=== PATIENT | female | born 1960 | race Caucasian/White ===

== ENCOUNTER → 2019-01-01 | Outpatient (CLI) | payer BC ==
[~2019-01-01] MED LIST: CETI10TA17 PO; CINNAMON PO; E400C PO; FURO20TA4 PO; GABA100T PO; IRBE1TAB15 PO; LORAZAPAM PO; NF-ESOM40C PO; OMEG1CAP51 PO; OXYC-281 PO; PGLT30T PO; TMSL.4C PO; VITA1CAP59 PO; VRP180TCR PO
[2019-01-01 10:03] LABS: SODIUM 141 MMOL/L (135-145)
[2019-01-01 10:04] LABS: ALANINE AMINOTRANSFERASE 15 U/L (0-55); ALKALINE PHOSPHATASE 53 U/L (40-136); BILIRUBIN,TOTAL 0.4 MG/DL (0.1-1.0); BUN/CREATININE RATIO 33; CALCIUM 9.5 MG/DL (8.5-10.1); CARBON DIOXIDE 19 MMOL/L (21-32); CHLORIDE 101 MMOL/L (98-107); CREATININE SERUM 0.83 MG/DL (0.60-1.30); GFR ESTIMATED > 60; GLUCOSE 123 MG/DL (70-105)
== END ==
LOC: LAB FS 07:25
PROVIDERS: ATTEND Family Medicine
DX: I10 Essential (primary) hypertension (principal); E11.9 Type 2 diabetes mellitus without complications
CPT/HCPCS: 36415; 80053; 83036

== ENCOUNTER → 2019-01-28 | Outpatient (CLI) | payer BC ==
[2019-01-28 13:38] LABS: BILIRUBIN,URINE NEGATIVE (NEGATIVE); CLARITY,URINE CLEAR; COLOR,URINE YELLOW; GLUCOSE, URINE (UA) NEGATIVE (NEGATIVE); KETONES,URINE NEGATIVE (NEGATIVE); LEUKOCYTE ESTERASE ,URINE NEGATIVE (NEGATIVE); NITRITE,URINE NEGATIVE (NEGATIVE); PROTEIN,URINE NEGATIVE (NEGATIVE); UROBILINOGEN,URINE 0.2 MG/DL (NORMAL)
== END ==
LOC: LAB FS 13:17
PROVIDERS: ATTEND Family Medicine
DX: R10.9 Unspecified abdominal pain (principal)
CPT/HCPCS: 81002

== ENCOUNTER → 2019-04-01 | Outpatient (CLI) | payer BC ==
--- NOTE | 2019-04-01 09:47 | Diagnostic Imaging Report ---
PROCEDURE: US right lower extremity venous. TECHNIQUE: Multiple real-time grayscale images were obtained over the right lower extremity in various projections. Additional spectral analysis and color Doppler duplex images were also obtained. INDICATION: Right lower leg pain. There is no evidence of right lower extremity DVT. Right lower extremity deep venous system shows normal compressibility with normal response to augmentation and Valsalva. No fluid collection or mass is detected. IMPRESSION: No evidence of right lower extremity DVT. Dictated by: Dictated on workstation # [id number]
== END ==
LOC: RAD 09:07
PROVIDERS: ATTEND Podiatrist
DX: M79.661 Pain in right lower leg (principal)

== ENCOUNTER → 2019-04-06 | Outpatient (CLI) | payer BC ==
[2019-04-06 11:46] LABS: CLARITY,URINE SL CLOUDY; COLOR,URINE DARK YELLOW
[2019-04-06 11:47] LABS: GLUCOSE, URINE (UA) NEGATIVE (NEGATIVE); PROTEIN,URINE NEGATIVE (NEGATIVE)
[2019-04-06 11:48] LABS: BACTERIA,URINE LARGE /HPF; BILIRUBIN,URINE NEGATIVE (NEGATIVE); KETONES,URINE NEGATIVE (NEGATIVE); LEUKOCYTE ESTERASE ,URINE 1+ (NEGATIVE); NITRITE,URINE POSITIVE (NEGATIVE); SQUAMOUS EPITHELIAL CELL,UR 0-2 /HPF; UROBILINOGEN,URINE 0.2 MG/DL (NORMAL); WBC,URINE >100 /HPF
== END ==
LOC: LAB FS 07:56
PROVIDERS: ATTEND Family Medicine
DX: R30.0 Dysuria (principal)
CPT/HCPCS: 81000; 87077; 87088; 87186

== ENCOUNTER → 2019-05-06 | Outpatient (CLI) | payer BC ==
[2019-05-06 09:08] LABS: ALANINE AMINOTRANSFERASE 14 U/L (0-55); ALKALINE PHOSPHATASE 75 U/L (40-136); BILIRUBIN,TOTAL 0.6 MG/DL (0.1-1.0); BUN/CREATININE RATIO 36; CALCIUM 9.7 MG/DL (8.5-10.1); CARBON DIOXIDE 26 MMOL/L (21-32); CHLORIDE 100 MMOL/L (98-107); CREATININE SERUM 0.81 MG/DL (0.60-1.30); GFR ESTIMATED > 60; GLUCOSE 115 MG/DL (70-105); POTASSIUM 4.1 MMOL/L (3.6-5.0); SODIUM 141 MMOL/L (135-145); TOTAL PROTEIN 7.3 GM/DL (6.4-8.2)
[2019-05-06 09:09] LABS: ALBUMIN 4.1 GM/DL (3.2-4.5)
[2019-05-06 15:13] LABS: CHOLESTEROL 246 MG/DL (< 200); HDL CHOLESTEROL 45 MG/DL (40-60); TRIGLYCERIDES 153 MG/DL (<150); VLDL CHOLESTEROL 31 MG/DL (5-40)
== END ==
LOC: LAB FS 08:11
PROVIDERS: ATTEND Family Medicine
DX: E78.5 Hyperlipidemia, unspecified (principal); E11.9 Type 2 diabetes mellitus without complications; I10 Essential (primary) hypertension
CPT/HCPCS: 36415; 80053; 80061; 82043; 83036

== ENCOUNTER → 2019-07-30 | Outpatient (CLI) | payer BC ==
[2019-07-30 11:37] LABS: BILIRUBIN,URINE NEGATIVE (NEGATIVE); CLARITY,URINE CLOUDY; COLOR,URINE YELLOW; GLUCOSE, URINE (UA) NEGATIVE (NEGATIVE); KETONES,URINE NEGATIVE (NEGATIVE); LEUKOCYTE ESTERASE ,URINE 3+ (NEGATIVE); NITRITE,URINE POSITIVE (NEGATIVE); PH,URINE 6.5 (5-9); PROTEIN,URINE NEGATIVE (NEGATIVE); UROBILINOGEN,URINE 0.2 MG/DL (NORMAL)
[2019-07-30 11:38] LABS: BACTERIA,URINE LARGE /HPF; RBC,URINE 0-2 /HPF; SQUAMOUS EPITHELIAL CELL,UR RARE /HPF; WBC,URINE TNTC /HPF
== END ==
LOC: LAB FS 11:02
PROVIDERS: ATTEND Family Medicine
DX: R30.0 Dysuria (principal)
CPT/HCPCS: 81000; 87077; 87088; 87186

== ENCOUNTER → 2019-11-09 | Outpatient (CLI) | payer BC ==
[2019-11-09 15:11] LABS: BILIRUBIN,URINE NEGATIVE (NEGATIVE); CLARITY,URINE CLEAR; COLOR,URINE YELLOW; GLUCOSE, URINE (UA) NEGATIVE (NEGATIVE); KETONES,URINE NEGATIVE (NEGATIVE); LEUKOCYTE ESTERASE ,URINE TRACE (NEGATIVE); NITRITE,URINE NEGATIVE (NEGATIVE); PH,URINE 6.5 (5-9); PROTEIN,URINE NEGATIVE (NEGATIVE)
[2019-11-09 15:12] LABS: BACTERIA,URINE FEW /HPF
== END ==
LOC: LAB FS 13:49
PROVIDERS: ATTEND Family Medicine
DX: R30.0 Dysuria (principal)
CPT/HCPCS: 81000; 87077; 87088; 87186

== ENCOUNTER → 2019-11-29 | Outpatient (CLI) | payer BC ==
[2019-11-29 15:33] LABS: BILIRUBIN,URINE NEGATIVE (NEGATIVE); CLARITY,URINE CLEAR; COLOR,URINE YELLOW; GLUCOSE, URINE (UA) NEGATIVE (NEGATIVE); KETONES,URINE NEGATIVE (NEGATIVE); LEUKOCYTE ESTERASE ,URINE 2+ (NEGATIVE); NITRITE,URINE POSITIVE (NEGATIVE); PH,URINE 6.5 (5-9); PROTEIN,URINE NEGATIVE (NEGATIVE)
[2019-11-29 15:34] LABS: BACTERIA,URINE LARGE /HPF; SQUAMOUS EPITHELIAL CELL,UR RARE /HPF; WBC,URINE 25-50 /HPF
== END ==
LOC: LAB FS 14:15
PROVIDERS: ATTEND Family Medicine
DX: N39.0 Urinary tract infection, site not specified (principal)
CPT/HCPCS: 81000; 87088

== ENCOUNTER → 2019-12-15 | Outpatient (CLI) | payer BC ==
[2019-12-15 14:52] LABS: BACTERIA,URINE MODERATE /HPF; BILIRUBIN,URINE NEGATIVE (NEGATIVE); CLARITY,URINE CLOUDY; COLOR,URINE YELLOW; GLUCOSE, URINE (UA) NEGATIVE (NEGATIVE); KETONES,URINE NEGATIVE (NEGATIVE); LEUKOCYTE ESTERASE ,URINE 2+ (NEGATIVE); NITRITE,URINE NEGATIVE (NEGATIVE); PROTEIN,URINE NEGATIVE (NEGATIVE); RBC,URINE 0-2 /HPF; WBC,URINE TNTC /HPF
== END ==
LOC: LAB FS 14:14
PROVIDERS: ATTEND Family Medicine
DX: R82.90 Unspecified abnormal findings in urine (principal)
CPT/HCPCS: 81000; 87077; 87088

== ENCOUNTER → 2020-07-15 | Outpatient (CLI) | payer BC ==
[2020-07-15 08:22] LABS: ALANINE AMINOTRANSFERASE 18 U/L (0-55); ALKALINE PHOSPHATASE 59 U/L (40-136); BILIRUBIN,TOTAL 0.5 MG/DL (0.1-1.0); BUN/CREATININE RATIO 30; CALCIUM 9.9 MG/DL (8.5-10.1); CARBON DIOXIDE 26 MMOL/L (21-32); CHLORIDE 105 MMOL/L (98-107); CREATININE SERUM 0.82 MG/DL (0.60-1.30); GFR ESTIMATED > 60; GLUCOSE 117 MG/DL (70-105); POTASSIUM 4.2 MMOL/L (3.6-5.0); SODIUM 143 MMOL/L (135-145)
[2020-07-15 08:23] LABS: ALBUMIN 3.9 GM/DL (3.2-4.5)
[2020-07-15 14:15] LABS: TRIGLYCERIDES 108 MG/DL (<150); VLDL CHOLESTEROL 22 MG/DL (5-40)
[2020-07-15 14:20] LABS: CHOLESTEROL 165 MG/DL (< 200)
[2020-07-15 14:21] LABS: HDL CHOLESTEROL 44 MG/DL (40-60)
== END ==
LOC: LAB FS 07:35
PROVIDERS: ATTEND Family Medicine
DX: E78.5 Hyperlipidemia, unspecified (principal); E11.9 Type 2 diabetes mellitus without complications
CPT/HCPCS: 36415; 80053; 80061; 83036

== ENCOUNTER → 2021-02-20 | Outpatient (CLI) | payer BC ==
--- NOTE | 2021-02-20 12:29 | Diagnostic Imaging Report ---
INDICATION: Routine screening. Comparison is made with prior mammogram 08/28/2018 and 05/13/2017. 2-D and 3-D bilateral screening mammography was performed with CAD. Both breasts are heterogeneously dense, limiting the sensitivity of mammography. The parenchymal pattern is stable. No mass or malignant appearing microcalcifications are seen. Axillae are unremarkable. IMPRESSION: BI-RADS Category 1 No mammographic features suspicious for malignancy are identified. ACR BI-RADS Category 1: Negative. Result letter will be mailed to the patient. Note: At least 10% of breast cancer is not imaged by mammography. Dictated by: Dictated on workstation # [id number]
== END ==
LOC: RAD 11:00
PROVIDERS: ATTEND Family Medicine
DX: Z12.31 Encounter for screening mammogram for malignant neoplasm of breast (principal)
CPT/HCPCS: 77063; 77067

== ENCOUNTER 2021-05-26 07:50 | Inpatient (IN) | payer BC ==
[~2021-05-26] VITALS: Ht 165 cm; Wt 117.2 kg
[2021-05-26 08:31] LABS: HEMATOCRIT 35 % (35-52); HEMOGLOBIN 11.4 G/DL (11.5-16.0); MEAN CORPUSCULAR HEMOGLOBIN 30 PG (25-34); MEAN CORPUSCULAR HGB CONC 33 G/DL (32-36); MEAN CORPUSCULAR VOLUME 93 FL (80-99); PLATELET COUNT 256 10^3/uL (130-400); WHITE BLOOD COUNT 11.6 10^3/uL (4.3-11.0)
[2021-05-26 08:32] LABS: BASOPHILS % (AUTO) 0 % (0-10); EOSINOPHILS # (AUTO) 0.1 10^3/uL (0.0-0.3); EOSINOPHILS % (AUTO) 1 % (0-10); LYMPHOCYTES # (AUTO) 0.9 X 10^3 (1.0-4.0); LYMPHOCYTES % (AUTO) 8 % (12-44); MEAN PLATELET VOLUME 9.7 FL (7.4-10.4); MONOCYTES # (AUTO) 0.6 X 10^3 (0.0-1.0); MONOCYTES % (AUTO) 5 % (0-12); NEUTROPHILS # (AUTO) 9.7 X 10^3 (1.8-7.8); NEUTROPHILS % (AUTO) 83 % (42-75)
[2021-05-26 08:34] LABS: INR 1.1 (0.8-1.4); PARTIAL THROMBOPLASTIN TIME 34 SEC (24-35); PROTHROMBIN TIME PATIENT 14.4 SEC (12.2-14.7)
--- NOTE | 2021-05-26 08:34 | ED Respiratory ---
General Chief Complaint: Respiratory Problems Stated Complaint: SOA/COVID + Source: patient Exam Limitations: no limitations History of Present Illness Date Seen by Provider: May 26, 2021 Time Seen by Provider: 08:01 Initial Comments Here with report of shortness of air. Patient has Covid symptoms with significant exposure and is likely Covid positive but was never tested. She is a patient of Dr. Mayes. Patient's is Covid positive. She started expe riencing symptoms on 05/08 with loss of taste and smell on 05/12. Actually was doing better this week but did have intermittent bouts of shortness of air. This morning, her went out to do chores and came back to find her with altered mental status and complaining of shortness of breath. EMS was summoned. Initial O2 sat for EMS was 80 to 81% on room air. They did place her on 6 L nasal cannula and that brought O2 saturations up to 96 percent. She is stating that she is feeling better now. She reports that she felt like there was tightness or swelling in her lower throat when she was short of breath. Does arrive with some wheezes. Patient is obese with history of hypertension and wse-juamwpl-dmrxqsrhr diabetes mellitus. She has not had vaccination for COVID- 19 and did not receive monoclonal antibody therapy. Timing/Duration: changing over time Severity: moderate, severe Prior Episodes/Possible Cause: no prior episodes Modifying Factors: Improves With Oxygen Associated Symptoms: No chest pain/soreness, No cough, No fever/chills; nasal congestion, shortness of breath, sore throat, wheezing Allergies and Home Medications Allergies Coded Allergies: Sulfa (Sulfonamide Antibiotics) (Unverified Allergy, Unknown, 02/20/21) indomethacin (Unverified Allergy, Unknown, 02/20/21) iodine (Unverified Allergy, Unknown, 02/20/21) terconazole (Unverified Allergy, Unknown, 02/20/21) nitrofurantoin (Unverified Adverse Reaction, Unknown, 05/26/21) Home Medications Atorvastatin Calcium 10 Mg Tablet, 10 MG PO HS, (Reported) Last Action: Last Taken Edited Cetirizine Hcl 10 Mg Tablet, 10 MG PO HS, (Reported) Last Action: Last Taken Edited Esomeprazole Mag Trihydrate 40 Mg Capsule., 1 CAP PO DAILY, (Reported) Last Action: Last Taken Edited Furosemide 20 Mg Tablet, 1 EACH PO DAILY PRN, (Reported) Last Action: Last Taken Edited Gabapentin 100 Mg Tablet, 1 EACH PO HS, (Reported) Last Action: Last Taken Edited Glimepiride 1 Mg Tablet, 1 MG PO DAILY, (Reported) Last Action: Last Taken Edited Oxycodone Hcl/Acetaminophen 1 Each Tablet, 1 EACH PO Q6H PRN, (Reported) 1 EVERY 6HRS NEEDED FOR PAIN Last Action: Last Taken Edited Pioglitazone Hcl 30 Mg Tab, 30 MG PO DAILY, (Reported) Last Action: Last Taken Edited Telmisartan/Hydrochlorothiazid 1 Each Tablet, 1 TAB PO DAILY, (Reported) Last Action: Last Taken Edited Verapamil Hcl 180 Mg Tab, 1 EACH PO HS, (Reported) Last Action: Last Taken Edited Vitamin B Complex 1 Cap Capsule, 1 CAP PO DAILY, (Reported) Last Action: Last Taken Edited Patient Home Medication List Home Medication List Reviewed: Yes Review of Systems Review of Systems Constitutional: see HPI; No malaise EENTM: see HPI Respiratory: see HPI, short of breath, wheezing Cardiovascular: edema (Right leg that is chronic); No palpitations Gastrointestinal: No abdominal pain; diarrhea, vomiting Genitourinary: no symptoms reported Musculoskeletal: no symptoms reported Skin: no symptoms reported All Other Systems Reviewed Negative Unless Noted: Yes Past Glejnto-Hrrspj-Xfepco Hx Patient Social History Substance use?: No Alcohol Use?: No Past Medical History Surgeries: Yes Section, Gallbladder, Orthopedic Respiratory: No Cardiac: Yes Hypertension Neurological: No Reproductive Disorders: No Genitourinary: Yes Gastrointestinal: Yes Gastroesophageal Reflux Musculoskeletal: No Endocrine: Yes Diabetes, Non-Insulin dep Family Medical History Reviewed and Corrections made No Pertinent Family Hx Physical Exam Vital Signs - First Documented 05/26/21 08:02 Temp 36.6 Pulse 111 Resp 24 B/P (MAP) 153/81 (105) Pulse Ox 96 O2 Delivery High Flow N/C O2 Flow Rate 4.00 Capillary Refill : Height: '" Weight: lbs. oz. kg; BMI Method: General Appearance: WD/WN, no apparent distress HEENT: PERRL/EOMI, pharynx normal Neck: full range of motion, supple Respiratory: decreased breath sounds, crackles (Bilateral bases left greater than right), wheezing (Scattered) Cardiovascular: no murmur, tachycardia Gastrointestinal: non tender, soft Extremities: non-tender, normal inspection Neurologic/Psychiatric: alert, oriented x 3 Skin: normal color, warm/dry Focused Exam Lactate Level 05/26/21 08:08: Lactic Acid Level 2.02*H 05/26/21 10:43: Lactic Acid Level 2.08*H Lactic Acid Level Laboratory Tests Test 05/26/21 08:08 05/26/21 10:43 Lactic Acid Level 2.02 MMOL/L (0.50-2.00) *H 2.08 MMOL/L (0.50-2.00) *H Progress/Results/Core Measures Suspected Sepsis SIRS Temperature: Pulse: Respiratory Rate: Laboratory Tests 05/26/21 08:08: White Blood Count 11.6H Blood Pressure / Mean: 05/26/21 08:08: Lactic Acid Level 2.02*H 05/26/21 10:43: Lactic Acid Level 2.08*H Laboratory Tests 05/26/21 08:08: Creatinine 1.02, INR Comment 1.1, Platelet Count 256, Total Bilirubin 0.4 Results/Orders Lab Results Laboratory Tests Test 05/26/21 08:08 05/26/21 08:19 05/26/21 10:43 05/26/21 11:10 Range/Units White Blood Count 11.6 H 4.3-11.0 10^3/uL Red Blood Count 3.75 L 4.35-5.85 10^6/uL Hemoglobin 11.4 L 11.5-16.0 G/DL Hematocrit 35 35-52 % Mean Corpuscular Volume 93 80-99 FL Mean Corpuscular Hemoglobin 30 25-34 PG Mean Corpuscular Hemoglobin Concent 33 32-36 G/DL Red Cell Distribution Width 13.2 10.0-14.5 % Platelet Count 256 130-400 10^3/uL Mean Platelet Volume 9.7 7.4-10.4 FL Immature Granulocyte % (Auto) 2 % Neutrophils (%) (Auto) 83 H 42-75 % Lymphocytes (%) (Auto) 8 L 12-44 % Monocytes (%) (Auto) 5 0-12 % Eosinophils (%) (Auto) 1 0-10 % Basophils (%) (Auto) 0 0-10 % Neutrophils # (Auto) 9.7 H 1.8-7.8 X 10^3 Lymphocytes # (Auto) 0.9 L 1.0-4.0 X 10^3 Monocytes # (Auto) 0.6 0.0-1.0 X 10^3 Eosinophils # (Auto) 0.1 0.0-0.3 10^3/uL Basophils # (Auto) 0.0 0.0-0.1 10^3/uL Immature Granulocyte # (Auto) 0.3 H 0.0-0.1 10^3/uL Neutrophils % (Manual) 84 % Lymphocytes % (Manual) 12 % Monocytes % (Manual) 3 % Eosinophils % (Manual) 1 % Prothrombin Time 14.4 12.2-14.7 SEC INR Comment 1.1 0.8-1.4 Activated Partial Thromboplast Time 34 24-35 SEC D-Dimer > 20.00 H 0.00-0.49 UG/ML Sodium Level 139 135-145 MMOL/L Potassium Level 3.5 L 3.6-5.0 MMOL/L Chloride Level 103 98-107 MMOL/L Carbon Dioxide Level 23 21-32 MMOL/L Anion Gap 13 5-14 MMOL/L Blood Urea Nitrogen 23 H 7-18 MG/DL Creatinine 1.02 0.60-1.30 MG/DL Estimat Glomerular Filtration Rate 55 BUN/Creatinine Ratio 23 Glucose Level 148 H 70-105 MG/DL Lactic Acid Level 2.02 *H 2.08 *H 0.50-2.00 MMOL/L Calcium Level 9.3 8.5-10.1 MG/DL Corrected Calcium 9.9 8.5-10.1 MG/DL Total Bilirubin 0.4 0.1-1.0 MG/DL Aspartate Amino Transf (AST/SGOT) 24 5-34 U/L Alanine Aminotransferase (ALT/SGPT) 36 0-55 U/L Alkaline Phosphatase 61 40-136 U/L C-Reactive Protein 16.43 H <0.50 MG/DL Pro-B-Type Natriuretic Peptide 243.8 H <75.0 PG/ML Total Protein 7.2 6.4-8.2 GM/DL Albumin 3.2 3.2-4.5 GM/DL Urine Color YELLOW Urine Clarity CLEAR Urine pH 6.0 5-9 Urine Specific [place] 1.010 L 1.016-1.022 Urine Protein TRACE H NEGATIVE Urine Glucose (UA) NEGATIVE NEGATIVE Urine Ketones TRACE H NEGATIVE Urine Nitrite NEGATIVE NEGATIVE Urine Bilirubin NEGATIVE NEGATIVE Urine Urobilinogen 0.2 < = 1.0 MG/DL Urine Leukocyte Esterase NEGATIVE NEGATIVE Urine RBC (Auto) NEGATIVE NEGATIVE Urine RBC NONE /HPF Urine WBC 5-10 H /HPF Urine Squamous Epithelial Cells 10-25 H /HPF Urine Crystals NONE /LPF Urine Bacteria FEW H /HPF Urine Casts NONE /LPF Urine Mucus NEGATIVE /LPF Urine Culture Indicated NO My Orders Orders - TAWANDA CHUNG MD Cbc With Automated Diff (05/26/21 08:22) Comprehensive Metabolic Panel (05/26/21 08:22) Blood Culture (05/26/21 08:22) Sputum Culture (05/26/21 08:22) Urinalysis (05/26/21 08:22) Urine Culture (05/26/21 08:22) Protime With Inr (05/26/21 08:22) Partial Thromboplastin Time (05/26/21 08:22) Chest 1 View Ap/Pa Only (05/26/21 08:22) Ed Iv/Invasive Line Start (05/26/21 08:22) Vital Signs Adult Sepsis Patie Q15M (05/26/21 08:22) O2 (05/26/21 08:22) Remove Rings In Anticipation O (05/26/21 08:22) Lactic Acid Analyzer (05/26/21 08:22) Covid 19 Inhouse Test (05/26/21 08:22) Fibrin Degradation Products (05/26/21 08:22) Probnp Fs (05/26/21 08:22) Crp Fs (05/26/21 08:22) Manual Differential (05/26/21 08:08) Albuterol Inhaler (Proair Hfa) (05/26/21 08:35) Rx-Albuterol Inhaler (Rx-Ventolin Hfa) (05/26/21 08:41) Ns Iv 1000 Ml (Sodium Chloride 0.9%) (05/26/21 09:15) Ct Angio Chest W (05/26/21 09:07) Methylprednisolone Sod Succ (Solu-Medrol (05/26/21 09:30) Iohexol Injection (Omnipaque 350 Mg/Ml 1 (05/26/21 09:30) Received Contrast (Hold Metformin- Contr (05/26/21 09:30) Sodium Chloride Flush (Catheter Flush Sy (05/26/21 09:30) Ns (Ivpb) (Sodium Chloride 0.9% Ivpb Bag (05/26/21 09:30) Famotidine Injection (Pepcid Injection) (05/26/21 09:19) Diphenhydramine Injection (Benadryl Inje (05/26/21 09:30) Dexamethasone Injection (Decadron Inje (05/26/21 10:45) Enoxaparin Injection (Lovenox Injection) (05/26/21 10:45) Medications Given in ED Current Medications Medications Dose Ordered Sig/Hubert Route Start Time Stop Time Status Last Admin Dose Admin Dexamethasone Sodium Phosphate 6 mg ONCE ONCE IV 05/26/21 10:45 05/26/21 10:47 DC 05/26/21 10:55 6 MG Diphenhydramine HCl 50 mg ONCE ONCE IVP 05/26/21 09:30 05/26/21 09:31 DC 05/26/21 09:29 50 MG Enoxaparin Sodium 120 mg ONCE ONCE SC 05/26/21 10:45 05/26/21 10:47 DC 05/26/21 10:56 120 MG Iohexol 100 ml ONCE ONCE IV 05/26/21 09:30 05/26/21 09:31 DC 05/26/21 10:29 100 ML Methylprednisolone Sodium Succinate 125 mg ONCE ONCE IVP 05/26/21 09:30 05/26/21 09:31 DC 05/26/21 09:30 125 MG Sodium Chloride 10 ml NEEDED PRN IV 05/26/21 09:30 05/26/21 10:29 10 ML Sodium Chloride 100 ml ONCE ONCE IV 05/26/21 09:30 05/26/21 09:31 DC 05/26/21 10:29 100 ML Sodium Chloride 1,000 ml @ 0 mls/hr Q0M ONCE IV 05/26/21 09:15 05/26/21 09:16 DC 05/26/21 09:33 0 MLS/HR Vital Signs/I&O 05/26/21 08:02 Temp 36.6 Pulse 111 Resp 24 B/P (MAP) 153/81 (105) Pulse Ox 96 O2 Delivery High Flow N/C O2 Flow Rate 4.00 Capillary Refill : Progress Note : Progress Note Seen and evaluated. IV, labs, blood cultures and lactic acid ordered. Sepsis protocol initiated. Covid screening ordered. We will do albuterol 4 puffs via spacer now for wheezes and now requiring oxygen. We will also evaluate for D- dimer. Monitor patient. 0920: D-dimer too high to read. Does have lateral pulmonary infiltrates which is concerning for Covid pneumonia but I also have concerns for pulmonary emboli. We did give albuterol inhaler and that did help some briefly but still requires oxygen. Patient does have iodine allergy. We will pretreat with Solu-Medrol 125 mg IV and Benadryl 50 mg IV as well as Pepcid 20 mg IV. Patient will get testing 30 minutes afterwards. Monitor patient. 1057: I did discuss CT findings with the radiologist due to significant bilateral pulmonary emboli and saddle emboli noted. Patient also has features of Covid pneumonia. Decadron 6 mg IV ordered for the Covid pneumonia. Lovenox 120 mg subcu ordered approximating 1 mg/kg subcu for treatment for PE after discussion with Dr. Godfrey. Patient to be admitted to our ICU. Dr. Godfrey accepts patient for admission, inpatient status. All findings and concerns discussed with patient and she agrees with plan. ECG Initial ECG Rhythm: A Fib/Flutter Diagnostic Imaging Diagonstic Imaging: Xray Plain Films/CT/US/NM/MRI: chest Comments [facility]. [place], [place] NAME: ISIDRO DELEON [facility] REC#: [id number] PT STATUS: REG ER : 1960 PHYSICIAN: TAWANDA CHUNG MD ADMIT DATE: 05/26/21/ER FS Draft Date of Exam:05/26/21 CHEST 1 VIEW AP/PA ONLY INDICATION: Shortness of breath. TIME OF EXAM: 8:22 AM There is some patchy infiltrate left upper lobe as well as the left base. There is minimal infiltrate right base. No effusion or pneumothorax is seen. IMPRESSION: Patchy bilateral infiltrates, left greater. Dictated on workstation # [id number] Dict: 05/26/21 0843 Trans: 05/26/21 0848 CV [id number] Interpreted by: MELODY HUGO MD Electronically signed by: Diagonstic Imaging: CT Plain Films/CT/US/NM/MRI: chest Comments [facility]. [place], [place] NAME: ISIDRO DELEON [facility] REC#: [id number] PT STATUS: REG ER : 1960 PHYSICIAN: TAWANDA CHUNG MD ADMIT DATE: 05/26/21/ER FS Draft Date of Exam:05/26/21 CT ANGIO CHEST W PROCEDURE: CT angiography of the chest with contrast. TECHNIQUE: Multiple contiguous axial images were obtained through the chest after uneventful bolus administration of intravenous contrast. 3D reconstructed CTA MIP acquisitions were also performed. Auto Exposure Controls were utilized during the CT exam to meet ALARA standards for radiation dose reduction. INDICATION: Hypoxia with shortness of breath and COVID 19 positive. No prior studies are available for comparison. Evaluation of pulmonary arterial system does show significant pulmonary emboli. There is a saddle embolus present. There filling defects within bilateral upper and lower lobar arteries with clot extending into segmental branches. There is some enlargement of the right ventricle with some flattening of the interventricular septum suggestive of right heart strain. There is no pericardial or pleural fluid. Aorta is normal caliber. There are some patchy groundglass infiltrates in the left upper lobe as well as bilateral lower lobes suggestive of COVID 19 pneumonia. Upper abdomen is unremarkable. IMPRESSION: 1. Findings consistent with bilateral pulmonary emboli as well as saddle embolus. There is fairly significant clot burden. There are also findings are consistent with right heart strain. 2. Bilateral groundglass pulmonary infiltrates consistent with COVID 19 pneumonia. Dictated on workstation # [id number] Dict: 05/26/21 1035 Trans: 05/26/21 1049 [facility] [id number] Interpreted by: MELODY HUGO MD Electronically signed by: Departure Communication (Admissions) Time/Spoke to Admitting Phy: 10:57 Impression Primary Impression: Pulmonary embolism Qualified Codes: I26.02 - Saddle embolus of pulmonary artery with acute cor pulmonale Additional Impression: Pneumonia due to COVID-19 virus Disposition: 30 STILL A PATIENT Condition: Critical Admissions Decision to Admit Reason: Admit from ER (General) Decision to Admit/Date: May 26, 2021 Time/Decision to Admit Time: 10:57 Departure-Patient Inst. Referrals: YOLANDE MAYES MD (PCP/Family) Primary Care Physician TAWANDA CHUNG MD May 26, 2021 08:34
[2021-05-26] MEDS ORDERED: RT-ALBUTEROL HFA 8.5 GM INHALER IH STA (08:35)
[2021-05-26 08:38] LABS: BILIRUBIN,TOTAL 0.4 MG/DL (0.1-1.0); CALCIUM 9.3 MG/DL (8.5-10.1); CREATININE SERUM 1.02 MG/DL (0.60-1.30); POTASSIUM 3.5 MMOL/L (3.6-5.0)
[2021-05-26 08:39] LABS: ALBUMIN 3.2 GM/DL (3.2-4.5); TOTAL PROTEIN 7.2 GM/DL (6.4-8.2)
[2021-05-26] MEDS ORDERED: RX-ALBUTEROL INHALER (VENTOLIN HFA) 8.5 GM IH STA (08:41)
--- NOTE | 2021-05-26 08:49 | Diagnostic Imaging Report ---
INDICATION: Shortness of breath. TIME OF EXAM: 8:22 AM There is some patchy infiltrate left upper lobe as well as the left base. There is minimal infiltrate right base. No effusion or pneumothorax is seen. IMPRESSION: Patchy bilateral infiltrates, left greater. Dictated by: Dictated on workstation # [id number]
[2021-05-26 08:51] LABS: EOSINOPHILS % (MANUAL) 1 %; LYMPHOCYTES % (MANUAL) 12 %; MONOCYTES % (MANUAL) 3 %; NEUTROPHILS % (MANUAL) 84 %
[2021-05-26 09:04] LABS: FIBRIN DEGRADATION PRODUCTS > 20.00 UG/ML (0.00-0.49)
[2021-05-26] MEDS ORDERED: ATOR10TA66 PO (09:06)
[2021-05-26] MEDS ORDERED: GLIM1TAB4 PO (09:06)
[2021-05-26] MEDS ORDERED: TELM1TAB35 PO (09:06)
[2021-05-26] MEDS ORDERED: Tumeric (09:07)
[2021-05-26] MEDS ORDERED: NS IV 1000 ML 1,000 ML IV ONE (09:15)
[2021-05-26] MEDS ORDERED: FAMOTIDINE 20MG/2ML IV (PEPCID) IV STA (09:19)
[2021-05-26] MEDS ORDERED: CATHETER FLUSH 10 ML SYR IV PRN (09:30)
[2021-05-26] MEDS ORDERED: methylPREDNISolone 125 MG (Solu-MEDROL) VIAL IVP ONE (09:30)
[2021-05-26] MEDS ORDERED: NS 100 ML (IVPB) BAG IV ONE (09:30)
[2021-05-26] MEDS ORDERED: HOLD METFORMIN - RECEIVED CONTRAST 20 ML VIAL IV SCH (09:30)
[2021-05-26] MEDS ORDERED: diphenhydrAMINE 50 MG/ML INJ (BENADRYL) IVP ONE ×2 (09:30)
[2021-05-26] MEDS ORDERED: IOHEXOL 350 MG/ML 100 ML (OMNIPAQUE 350) VIAL IV ONE (09:30)
[2021-05-26] MEDS ORDERED: ENOXAPARIN 60 MG/0.6 ML (LOVENOX) SYR SC ONE (10:45)
--- NOTE | 2021-05-26 10:50 | Diagnostic Imaging Report ---
PROCEDURE: CT angiography of the chest with contrast. TECHNIQUE: Multiple contiguous axial images were obtained through the chest after uneventful bolus administration of intravenous contrast. 3D reconstructed CTA MIP acquisitions were also performed. Auto Exposure Controls were utilized during the CT exam to meet ALARA standards for radiation dose reduction. INDICATION: Hypoxia with shortness of breath and COVID 19 positive. No prior studies are available for comparison. Evaluation of pulmonary arterial system does show significant pulmonary emboli. There is a saddle embolus present. There filling defects within bilateral upper and lower lobar arteries with clot extending into segmental branches. There is some enlargement of the right ventricle with some flattening of the interventricular septum suggestive of right heart strain. There is no pericardial or pleural fluid. Aorta is normal caliber. There are some patchy groundglass infiltrates in the left upper lobe as well as bilateral lower lobes suggestive of COVID 19 pneumonia. Upper abdomen is unremarkable. IMPRESSION: 1. Findings consistent with bilateral pulmonary emboli as well as saddle embolus. There is fairly significant clot burden. There are also findings are consistent with right heart strain. 2. Bilateral groundglass pulmonary infiltrates consistent with COVID 19 pneumonia. Dictated by: Dictated on workstation # [id number]
[2021-05-26 11:21] LABS: BACTERIA,URINE FEW /HPF; BILIRUBIN,URINE NEGATIVE (NEGATIVE); CLARITY,URINE CLEAR; COLOR,URINE YELLOW; GLUCOSE, URINE (UA) NEGATIVE (NEGATIVE); KETONES,URINE TRACE (NEGATIVE); LEUKOCYTE ESTERASE ,URINE NEGATIVE (NEGATIVE); NITRITE,URINE NEGATIVE (NEGATIVE); PROTEIN,URINE TRACE (NEGATIVE)
[2021-05-26] MEDS ORDERED: ONDANSETRON 4 MG/2 ML (SDV) Z0FRAN IV PRN (13:30)
[2021-05-26 13:52] VITALS: BP 153/81
--- NOTE | 2021-05-26 13:55 | Tele-ICU Consult ---
History of Present Illness History of Present Illness Date Seen by Provider: May 26, 2021 Time Seen by Provider: 13:15 Date of Admission This is a virtual visit which was conducted using real time audio/video. Thank you for asking us to see this patient for respiratory insufficiency and distress due to Covid pna, B and saddle/segmental PEs with RV strain.. Non vaccinated. PMH: DM HTN HL Chronic pain obesity. SH: smoking history: none. FH: Non-contributory ROS: r leg edema PE: Appears remarkably comfortable, and is conversant. VSS HR [address] BP 173/114 24 97% on 4 LPM NC. HEENT: No obvious masses, adenopathy or JVD. Chest: clear to auscultation. CV: RRR S1 S2 No murmur or added sounds. Abd: Non-tender. Bowel sounds . : Unremarkable. Sweeney . TREE FELLER/psychiatric: Alert and oriented, grossly intact. No obvious focal findings. Extremities: R edema. Capillary refill < 3 seconds. Skin: unremarkable. Results: Elevated WCC 11.6, Glucose 148 Lactate 2.08, D-Dimer off the charts. CXR B infilts, L>R. CTC : B segmental and saddle emboliw evidence for RV strain. A/P: B segmental and saddle PEs. Anticoagulated w Lovenox. Available chart/ vitals / labs / Images reviewed. Video assessment done using teleICU camera. Respiratory: Continue present management with 4 NC and albuterol. Monitor for increasing oxygenation needs and/or need for BiPAP/Intubation.. Critical Care: critically ill patient. Too late in course for Remdesivir. Cont. Dec., Mao., Albuterol.. Asked RN to reach out to eICU if any questions or concerns later. Time spent with patient/coordination of care with other health professionals (mins): 25 Allergies and Home Medications Allergies Coded Allergies: Sulfa (Sulfonamide Antibiotics) (Unverified Allergy, Unknown, 02/20/21) indomethacin (Unverified Allergy, Unknown, 02/20/21) iodine (Unverified Allergy, Unknown, 02/20/21) terconazole (Unverified Allergy, Unknown, 02/20/21) nitrofurantoin (Unverified Adverse Reaction, Unknown, 05/26/21) Home Medications Atorvastatin Calcium 10 Mg Tablet, 10 MG PO HS, (Reported) Cetirizine Hcl 10 Mg Tablet, 10 MG PO HS, (Reported) Esomeprazole Mag Trihydrate 40 Mg Capsule.dr, 1 CAP PO DAILY, (Reported) Furosemide 20 Mg Tablet, 1 EACH PO DAILY PRN, (Reported) Gabapentin 100 Mg Tablet, 1 EACH PO HS, (Reported) Glimepiride 1 Mg Tablet, 1 MG PO DAILY, (Reported) Oxycodone Hcl/Acetaminophen 1 Each Tablet, 1 EACH PO Q6H PRN, (Reported) 1 EVERY 6HRS NEEDED FOR PAIN Pioglitazone Hcl 30 Mg Tab, 30 MG PO DAILY, (Reported) Telmisartan/Hydrochlorothiazid 1 Each Tablet, 1 TAB PO DAILY, (Reported) Verapamil Hcl 180 Mg Tab, 1 EACH PO HS, (Reported) Vitamin B Complex 1 Cap Capsule, 1 CAP PO DAILY, (Reported) Past Medical/Social/Family Hx Patient Social History Tobacco Use?: No Smoking Status: Never a Smoker Smokeless Tobacco Frequency: Never a User Use of E-Cig and/or Vaping dev: No Substance use?: No Substance type: Caffeine Substance frequency: Daily Alcohol Use?: Yes Alcohol type: Wine Alcohol Frequency: Rarely Pt stated abuse/neglect: Yes Immunizations Up To Date Influenza Vaccine Up-to-Date: Yes; Up-to-Date First/Initial COVID19 Vaccinat: UNVACCINATED Tetanus Booster (TDap): Less Than 5 Years TB Skin Test: Negative Current Status status: No status: No Advance Directives: No Communicates: Verbally Primary Language: Palauan Preferred Spoken Language: Palauan Is interpretation needed?: No Sensory deficits: Vision impairment Implanted or Applied Medical D: Orthopedic hardware Review of Systems Constitutional: see HPI EENTM: see HPI Respiratory: see HPI Genitourinary: see HPI Musculoskeletal: see HPI Skin: see HPI Psychiatric/Neurological: See HPI All Other Systems Reviewed Negative Unless Noted: Yes Sepsis Event Evaluation Sepsis Stage: Ruled Out Height, Weight, BMI Height: '" Weight: lbs. oz. kg; 42.57 BMI Method: Exam Exam Patient acknowledged, consented, and participated in this virtual visit which was conducted using real time audio/video Vital Signs Date Time Temp Pulse Resp B/P (MAP) Pulse Ox O2 Delivery O2 Flow Rate FiO2 05/26/21 13:39 110 05/26/21 08:02 36.6 111 24 153/81 (105) 96 High Flow N/C 4.00 05/26/21 08:02 96 High Flow N/C 4.00 Height & Weight Height: '" Weight: lbs. oz. kg; 42.57 BMI Method: General Appearance: No Apparent Distress Capillary Refill: Less Than 3 Seconds Peripheral Pulses: 1+ Dorsalis Pedis (R), 1+ Left Dors-Pedis (L) Gastrointestinal: non tender, soft Results Lab Laboratory Tests 05/26/21 08:08 Assessment/Plan Assessment/Plan see free text Critical Care: Critically Ill Patient Time spent on discussion(mins): 0 Diagnosis/Problems Problems/Diagonsis (1) Pulmonary embolism Status: Acute Qualifiers: Qualified Codes: I26.02 - Saddle embolus of pulmonary artery with acute cor pulmonale (2) Pneumonia due to COVID-19 virus Status: Acute DAVE FLOOD MD May 26, 2021 13:55
[2021-05-26] MEDS ORDERED: RT-ALBUTEROL HFA 8.5 GM INHALER IH PRN (14:00)
--- NOTE | 2021-05-26 14:08 | History & Physical-Hospitalist ---
History of Present Illness HPI/Chief Complaint Pt is a 60yoCF with PMH of NIDDMII, HTN who presented to the ER due to shortness of breath. She became symptomatic with COVID on 05/08 and her was tested and was positive for COVID but she was not tested. She is unvaccinated for COVID. After about 10 days she started to feel better but then on 05/23 she developed worsening cough and shortness breath. She had one incident where she though her throat was going to close up. She sat down for a while and it resolved. This morning she bent over to pet her cat and had that same feeling occurred and she thought she was going to pass out. She could not catch her breath despite resting. She had her call EMS and on arrival labs reveale d an elevated d-dimer. CTA revealed saddle PE. She is being admitted for further management. Source: patient Date Seen 05/26/21 Time Seen by a Provider: 14:03 Attending Physician Deann Godfrey MD PCP Yolande Mayes MD Referring Physician Date of Admission May 26, 2021 at 12:47 Home Medications & Allergies Home Medications Reviewed patient Home Medication Reconciliation performed by pharmacy medication reconciliations rehabilitation technician and/or nursing. Patients Allergies have been reviewed. Allergies Allergies Coded Allergies Sulfa (Sulfonamide Antibiotics) (Unverified Allergy, Unknown, 02/20/21) indomethacin (Unverified Allergy, Unknown, 02/20/21) iodine (Unverified Allergy, Unknown, 02/20/21) terconazole (Unverified Allergy, Unknown, 02/20/21) nitrofurantoin (Unverified Adverse Reaction, Unknown, 05/26/21) Past Cgqnaye-Cytgjs-Wgjoxf Hx Patient Social History Marrital Status: Employed/Student: employed Tobacco Use?: No Smoking Status: Never a Smoker Smokeless Tobacco Frequency: Never a User Use of E-Cig and/or Vaping dev: No Substance use?: No Substance frequency: Daily Alcohol Use?: Yes Alcohol type: Wine Alcohol Frequency: Rarely Pt feels they are or have been: Yes Immunizations Up To Date First/Initial COVID19 Vaccinat: UNVACCINATED Tetanus Booster (TDap): Less Than 5 Years Current Status status: No status: No Advance Directives: No Communicates: Verbally Primary Language: [place] Preferred Spoken Language: [place] Is interpretation needed?: No Sensory deficits: Vision impairment Implanted or Applied Medical D: Orthopedic hardware Past Medical History Surgeries: Section, Gallbladder, Orthopedic Hypertension Gastroesophageal Reflux Diabetes, Non-Insulin dep Family Medical History Reviewed Nursing Family Hx No Pertinent Family Hx Review of Systems Constitutional: No fever; malaise, weakness EENTM: no symptoms reported Respiratory: cough, dyspnea on exertion, short of breath Cardiovascular: No chest pain, No Hx of Intervention, No palpitations; syncope (near syncope) Genitourinary: no symptoms reported Musculoskeletal: no symptoms reported Skin: no symptoms reported Psychiatric/Neurological: No Symptoms Reported Physical Exam Physical Exam Vital Signs Vital Signs - First Documented 05/26/21 05/26/21 08:02 12:47 Temp 36.6 Pulse 111 Resp 24 B/P (MAP) 153/81 (105) Pulse Ox 96 O2 Delivery High Flow N/C O2 Flow Rate 4.00 FiO2 96 Capillary Refill : Less Than 3 Seconds Height, Weight, BMI Height: '" Weight: lbs. oz. kg; 42.57 BMI Method: General Appearance: No Apparent Distress; No Anxious; Obese HEENT: PERRL/EOMI, Moist Mucous Membranes; No Scleral Icterus (L), No Scleral Icterus (R) Neck: Normal Inspection, Supple; No JVD Respiratory: Lungs Clear, No Accessory Muscle Use, Other (on 5lpm NC) Cardiovascular: No Murmur, Tachycardia Gastrointestinal: Normal Bowel Sounds, Non Tender, Soft Extremity: Normal Capillary Refill, No Calf Tenderness, No Pedal Edema Neurologic/Psychiatric: Alert, Oriented x3, Normal Mood/Affect Results Results/Procedures Labs Laboratory Tests 05/26/21 08:08 05/27/21 03:52 Patient resulted labs reviewed. Imaging: Reviewed Imaging Report Imaging [facility] [place], [place] NAME: ISIDRO DELEON [facility] REC#: [id number] PT STATUS: REG ER : 1960 PHYSICIAN: TAWANDA CHUNG MD ADMIT DATE: 05/26/21/ER FS Draft Date of Exam:05/26/21 CHEST 1 VIEW AP/PA ONLY INDICATION: Shortness of breath. TIME OF EXAM: 8:22 AM There is some patchy infiltrate left upper lobe as well as the left base. There is minimal infiltrate right base. No effusion or pneumothorax is seen. IMPRESSION: Patchy bilateral infiltrates, left greater. Dictated on workstation # [id number] Dict: 05/26/21 0843 Trans: 05/26/21 0848 CV [id number] Interpreted by: MELODY HUGO MD Electronically signed by: [facility] [place] [place] NAME: ISIDRO DELEON [facility] REC#: [id number] PT STATUS: REG ER : 1960 PHYSICIAN: TAWANDA CHUGN MD ADMIT DATE: 05/26/21/ER FS Draft Date of Exam:05/26/21 CT ANGIO CHEST W PROCEDURE: CT angiography of the chest with contrast. TECHNIQUE: Multiple contiguous axial images were obtained through the chest after uneventful bolus administration of intravenous contrast. 3D reconstructed CTA MIP acquisitions were also performed. Auto Exposure Controls were utilized during the CT exam to meet ALARA standards for radiation dose reduction. INDICATION: Hypoxia with shortness of breath and COVID 19 positive. No prior studies are available for comparison. Evaluation of pulmonary arterial system does show significant pulmonary emboli. There is a saddle embolus present. There filling defects within bilateral upper and lower lobar arteries with clot extending into segmental branches. There is some enlargement of the right ventricle with some flattening of the interventricular septum suggestive of right heart strain. There is no pericardial or pleural fluid. Aorta is normal caliber. There are some patchy groundglass infiltrates in the left upper lobe as well as bilateral lower lobes suggestive of COVID 19 pneumonia. Upper abdomen is unremarkable. IMPRESSION: 1. Findings consistent with bilateral pulmonary emboli as well as saddle embolus. There is fairly significant clot burden. There are also findings are consistent with right heart strain. 2. Bilateral groundglass pulmonary infiltrates consistent with COVID 19 pneumonia. Dictated on workstation # [id number] Dict: 05/26/21 1035 Trans: 05/26/21 1049 CVB [id number] Interpreted by: MELODY HUGO MD Electronically signed by: Assessment/Plan Admission Diagnosis Acute hypoxic respiratory failure due to saddle pulmonary embolus Admission Status: Inpatient Order (span 2 midnights) Reason for Inpatient Admission: see below Assessment and Plan Acute hypoxic respiratory failure due to saddle pulmonary embolus COVID19 massive PE- continue on lovenox Discussed with TeleICU No history of VTE- likely provoked by COVID19 MAT protocol Decadron Outside the window for Remdesivir Somewhat tachycardiac, no JVD- monitor for symptoms of heart failure echo Encouraged COVID vaccination upon discharge HTN Hypotension would be more concerning so will tolerate some hypertension Trend NIDDMII Likely will have worse BS duet o steroids SSI DVT ppx: On therapeutic lovenox Diagnosis/Problems Diagnosis/Problems (1) Acute respiratory failure (2) Essential (primary) hypertension (3) Non-insulin dependent type 2 diabetes mellitus (4) Obesity (5) Pulmonary embolism Status: Acute Qualifiers: Pulmonary embolism type: saddle Chronicity: acute Acute cor pulmonale presence: with acute cor pulmonale Qualified Codes: I26.02 - Saddle embolus of pulmonary artery with acute cor pulmonale (6) Pneumonia due to COVID-19 virus Status: Acute Copy Copies To 1: YOLANDE MAYES MD, KATELYN M MD May 26, 2021 14:08
[2021-05-26] MEDS: RT-ALBUTEROL HFA 8.5 GM INHALER IH SCH ×2 (14:45→19:02)
[2021-05-26] MEDS ORDERED: ENOXAPARIN 100 MG/1 ML (LOVENOX) SYR SC SCH (15:00)
[2021-05-26] MEDS: inSUlin ASPART (NovoLOG) 1 UNIT/0.01 ML (CHARGE PER UNIT) SC SCH ×2 (18:12→20:52)
[2021-05-26] MEDS: ACETAMINOPHEN 500 MG TAB (TYLENOL) PO PRN (18:25)
[2021-05-26] MEDS ORDERED: FUROSEMIDE 20 MG (LASIX) TAB PO PRN (19:15)
[2021-05-26] MEDS ORDERED: oxyCODONE/APAP 5/325MG (PERCOCET 5) TABLET PO PRN (19:30)
[2021-05-26] MEDS: GABAPENTIN 100 MG (NEURONTIN) CAP PO SCH (20:53)
[2021-05-26] MEDS: VERAPAMIL SR 180 MG (CALAN SR) TAB PO SCH (20:53)
[2021-05-26] MEDS: LORATADINE (CLARITIN) 10 MG TAB PO SCH ×2 (20:53→22:30)
[2021-05-26] MEDS: ATORVASTATIN 10 MG TABLET PO SCH (20:54)
[2021-05-26] MEDS ORDERED: ENOXAPARIN 60 MG/0.6 ML (LOVENOX) SYR ONE (21:01)
[2021-05-26] MEDS: ENOXAPARIN 300 MG/3 ML (LOVENOX) MULTI-DOSE VIAL SQ SCH (22:56)
[2021-05-27] MEDS: ACETAMINOPHEN 500 MG TAB (TYLENOL) PO PRN (00:09)
[2021-05-27] MEDS: RT-ALBUTEROL HFA 8.5 GM INHALER IH SCH ×4 (03:00→20:03)
[2021-05-27 04:30] LABS: BASOPHILS % (AUTO) 0 % (0-10); EOSINOPHILS % (AUTO) 0 % (0-10); HEMATOCRIT 33 % (35-52); HEMOGLOBIN 10.8 g/dL (11.5-16.0); LYMPHOCYTES # (AUTO) 1.2 X 10^3 (1.0-4.0); LYMPHOCYTES % (AUTO) 9 % (12-44); MEAN CORPUSCULAR HEMOGLOBIN 31 pg (25-34); MEAN CORPUSCULAR HGB CONC 33 g/dL (32-36); MEAN CORPUSCULAR VOLUME 93 fL (80-99); MEAN PLATELET VOLUME 10.2 fL (9.0-12.2); MONOCYTES # (AUTO) 0.5 X 10^3 (0.0-1.0); MONOCYTES % (AUTO) 4 % (0-12); NEUTROPHILS # (AUTO) 11.5 X 10^3 (1.8-7.8); NEUTROPHILS % (AUTO) 86 % (42-75); PLATELET COUNT 235 10^3/uL (130-400); WHITE BLOOD COUNT 13.4 10^3/uL (4.3-11.0)
[2021-05-27 04:53] LABS: CREATININE SERUM 0.88 MG/DL (0.60-1.30); POTASSIUM 3.6 MMOL/L (3.6-5.0)
[2021-05-27] MEDS: inSUlin ASPART (NovoLOG) 1 UNIT/0.01 ML (CHARGE PER UNIT) SC SCH ×4 (06:11→21:49)
[2021-05-27 06:47] LABS: MAGNESIUM 3.2 MG/DL (1.6-2.4); PHOSPHORUS 1.9 MG/DL (2.3-4.7)
[2021-05-27] MEDS ORDERED: PANTOPRAZOLE 40 MG (PROTONIX) TAB PO SCH (07:00)
[2021-05-27] MEDS ORDERED: KCL 20 MEQ TAB (K-DUR) PO ONE (08:00)
[2021-05-27] MEDS ORDERED: PIOGLITAZONE 30MG (ACTOS) TAB PO SCH ×2 (09:00→21:00)
[2021-05-27] MEDS ORDERED: [UNRECOGNIZED DRUG - OTHER] PO SCH (09:00)
[2021-05-27] MEDS: GLIMEPIRIDE 1 MG (AMARYL) TAB PO SCH (09:03)
[2021-05-27] MEDS: LOSARTAN 50 MG (COZAAR) TAB PO SCH (09:03)
[2021-05-27] MEDS: ENOXAPARIN 300 MG/3 ML (LOVENOX) MULTI-DOSE VIAL SQ SCH ×2 (09:04→20:43)
[2021-05-27] MEDS ORDERED: FAMOTIDINE 20 MG (PEPCID) TABLET PO ONE (09:30)
--- NOTE | 2021-05-27 09:31 | Progress Note - Hospitalist ---
Subjective HPI/CC On Admission Date Seen by Provider: May 27, 2021 Time Seen by Provider: 09:27 Pt is a 60yoCF with PMH of NIDDMII, HTN who presented to the ER due to shortness of breath. She became symptomatic with COVID on 05/08 and her was tested and was positive for COVID but she was not tested. She is unvacc inated for COVID. After about 10 days she started to feel better but then on 05/23 she developed worsening cough and shortness breath. She had one incident where she though her throat was going to close up. She sat down for a while and it resolved. This morning she bent over to pet her cat and had that same feeling occurred and she thought she was going to pass out. She could not catch her breath despite resting. She had her call EMS and on arrival labs revealed an elevated d-dimer. CTA revealed saddle PE. She is being admitted for further management. Subjective/Events-last exam Pt reports feeling better today. No complaints. Breathing is much easier. Focused Exam Lactate Level 05/26/21 08:08: Lactic Acid Level 2.02*H 05/26/21 10:43: Lactic Acid Level 2.08*H 05/26/21 12:27: Lactic Acid Level 1.69 Objective Exam Vital Signs Vital Signs Date Time Temp Pulse Resp B/P (MAP) Pulse Ox O2 Delivery O2 Flow Rate FiO2 05/27/21 09:00 96 14 177/87 (117) 96 Nasal Cannula 3.00 05/27/21 08:00 36.8 05/27/21 04:00 93 Capillary Refill : Less Than 3 Seconds General Appearance: No Apparent Distress, WD/WN Respiratory: Lungs Clear, No Respiratory Distress Cardiovascular: Regular Rate, Rhythm, No Murmur Gastrointestinal: Normal Bowel Sounds, Non Tender, Soft Neurologic/Psychiatric: Alert, Oriented x3 Results/Procedures Lab Laboratory Tests 05/27/21 03:52 Patient resulted labs reviewed. Imaging: Reviewed Imaging Report Assessment/Plan Assessment and Plan Assess & Plan/Chief Complaint Acute hypoxic respiratory failure due to saddle pulmonary embolus COVID19 massive PE- continue on lovenox If does well can transition Eliquis VTE dosing tomorrow Discussed with TeleICU No history of VTE- likely provoked by COVID19 MAT protocol Decadron Outside the window for Remdesivir tachycardia improved echo dopplers of lower extremities tomorrow Encouraged COVID vaccination upon discharge Can transfer out of ICU this afternoon if she does well HTN BP well controlled, trend NIDDMII Likely will have worse BS due to steroids SSI- refusing insulin DVT ppx: On therapeutic lovenox Critical Care Critically Ill Patient Diagnosis/Problems Diagnosis/Problems (1) Acute respiratory failure (2) Essential (primary) hypertension (3) Non-insulin dependent type 2 diabetes mellitus (4) Obesity (5) Pulmonary embolism Status: Acute Qualifiers: Pulmonary embolism type: saddle Chronicity: acute Acute cor pulmonale presence: with acute cor pulmonale Qualified Codes: I26.02 - Saddle embolus of pulmonary artery with acute cor pulmonale (6) Pneumonia due to COVID-19 virus Status: Acute WESLEY DEAN MD May 27, 2021 09:31
--- NOTE | 2021-05-27 09:36 | Tele-ICU Progress Note ---
Subjective Date Seen by a Provider: May 27, 2021 Time Seen by a Provider: 09:35 Sepsis Event Evaluation Height, Weight, BMI Height: '" Weight: lbs. oz. kg; 42.57 BMI Method: Focused Exam Lactate Level 05/26/21 08:08: Lactic Acid Level 2.02*H 05/26/21 10:43: Lactic Acid Level 2.08*H 05/26/21 12:27: Lactic Acid Level 1.69 Exam Exam Patient acknowledged, consented, and participated in this virtual visit which was conducted using real time audio/video Vital Signs Date Time Temp Pulse Resp B/P (MAP) Pulse Ox O2 Delivery O2 Flow Rate FiO2 05/27/21 09:28 Nasal Cannula 1.00 05/27/21 09:00 96 14 177/87 (117) 96 Nasal Cannula 3.00 05/27/21 08:00 36.8 05/27/21 08:00 98 22 165/83 (95) 98 Nasal Cannula 3.00 05/27/21 07:10 98 Nasal Cannula 2.00 05/27/21 07:00 87 05/27/21 07:00 89 18 160/86 (117) 95 Nasal Cannula 3.00 05/27/21 06:00 92 20 157/82 (107) 93 Nasal Cannula 3.00 05/27/21 05:00 87 19 142/73 (96) 94 Nasal Cannula 3.00 05/27/21 04:00 36.6 05/27/21 04:00 Nasal Cannula 3.00 93 05/27/21 04:00 93 23 156/82 (106) 94 Nasal Cannula 3.00 05/27/21 03:00 97 Nasal Cannula 3.00 05/27/21 03:00 92 23 130/75 (93) 94 Nasal Cannula 3.00 05/27/21 02:00 82 21 160/83 (108) 92 Nasal Cannula 3.00 05/27/21 01:00 86 05/27/21 01:00 88 22 166/91 (116) 91 Nasal Cannula 3.00 05/27/21 00:06 35.8 05/27/21 00:00 91 22 172/93 (119) 92 Nasal Cannula 3.00 05/27/21 00:00 Nasal Cannula 3.00 93 05/26/21 23:00 92 20 158/91 (113) 91 Nasal Cannula 3.00 05/26/21 22:30 Nasal Cannula 3.00 05/26/21 22:00 93 23 174/101 (125) 92 Nasal Cannula 5.00 05/26/21 21:00 98 30 160/83 (108) 98 Nasal Cannula 5.00 05/26/21 20:45 36.2 05/26/21 20:00 Nasal Cannula 3.00 93 05/26/21 20:00 105 22 171/88 (115) 94 Nasal Cannula 5.00 05/26/21 19:02 93 Nasal Cannula 3.00 05/26/21 19:00 102 25 169/94 (119) 93 Nasal Cannula 5.00 05/26/21 19:00 106 05/26/21 18:00 102 17 136/119 (125) 95 Nasal Cannula 5.00 05/26/21 17:00 101 22 162/97 (125) 97 Nasal Cannula 5.00 05/26/21 16:00 Nasal Cannula 6.00 96 05/26/21 16:00 105 23 165/97 (119) 98 Nasal Cannula 5.00 05/26/21 15:00 113 25 159/86 (110) 99 Nasal Cannula 5.00 05/26/21 14:46 98 Nasal Cannula 5.00 05/26/21 14:03 36.6 Nasal Cannula 5.00 05/26/21 14:00 112 26 163/113 (130) 99 Nasal Cannula 5.00 05/26/21 13:52 36.6 110 96 05/26/21 13:39 110 05/26/21 13:00 116 11 169/107 (127) 93 Nasal Cannula 5.00 05/26/21 12:47 Nasal Cannula 6.00 96 05/26/21 12:00 36.6 116 25 147/102 (105) 97 Room Air 4.00 I & O 05/27/21 07:00 Intake Total 2200 ml Output Total 1675 ml Balance 525 ml Height & Weight Height: '" Weight: lbs. oz. kg; 42.57 BMI Method: General Appearance: No Apparent Distress; No Anxious; Obese HEENT: PERRL/EOMI, Moist Mucous Membranes; No Scleral Icterus (L), No Scleral Icterus (R) Neck: Normal Inspection, Supple; No JVD Respiratory: Lungs Clear, No Accessory Muscle Use, Other (on 5lpm NC) Cardiovascular: No Murmur, Tachycardia Capillary Refill: Less Than 3 Seconds Peripheral Pulses: 1+ Dorsalis Pedis (R), 1+ Left Dors-Pedis (L) Gastrointestinal: non tender, soft Extremity: Normal Capillary Refill, No Calf Tenderness, No Pedal Edema Neurologic/Psychiatric: Alert, Oriented x3, Normal Mood/Affect Results Lab Laboratory Tests 05/26/21 08:08 05/27/21 03:52 Assessment/Plan Assessment/Plan (Tele-ICU Physician , Progress Note ) Available chart/ vitals / labs / Images reviewed Video assessment done using teleICU camera, rest of exam as per RN Discussed with RN Events overnight : Afebrile Pressors: , hemodynamically stable EXAM PER RN Hospital course: 05/26- Saddle embolus of pulmonary artery with acute cor pulmonale A/P Saddle embolus of pulmonary artery with acute cor pulmonale - hemodynamically stable, on 3 L o2 - lovenox full dose COVID PNA leucocytosis - ? reactive - s/p recent covid - on CT + ground glass - ? covid related - monitor off abx Anemia - in face of AC - follow Hyperglycemia Stress Ulcer Prophylaxis: PPi Plans in collaboration with bedside consultants and IM MDs. Discussed with RN to reach out if any questions or concerns Discussed with Dr Godfrey A total of _15 minutes of critical care time was devoted to this patient today, required to treat and/or prevent further deterioration of critical care condition ( as above) . AMINA NAYLOR MD May 27, 2021 09:35
--- NOTE | 2021-05-27 11:50 | Diagnostic Imaging Report ---
PROCEDURE: US Venous Lower Ext Chad. TECHNIQUE: Multiple real-time grayscale images were obtained over the lower extremities in various projections, bilaterally. Additional duplex Doppler and color Doppler images were also obtained. INDICATION: Pulmonary embolism. Right lower extremity deep venous system shows normal compressibility with normal response to augmentation Valsalva. A left common femoral vein is patent. There is thrombus identified in the upper superficial femoral vein. The mid and lower femoral vein and popliteal vein are patent. No definite flow is identified in the left calf veins. There is no fluid collection. IMPRESSION: 1. No evidence of right lower extremity DVT. 2. Findings consistent with DVT involving the left superficial femoral vein as well as calf veins. Dictated by: Dictated on workstation # [id number]
[2021-05-27] MEDS ORDERED: PATIENT MAY USE OWN MED,SINGLE MED PO SCH (16:45)
[2021-05-27] MEDS: LORATADINE (CLARITIN) 10 MG TAB PO SCH (20:42)
[2021-05-27] MEDS: GABAPENTIN 100 MG (NEURONTIN) CAP PO SCH (20:42)
[2021-05-27] MEDS: VERAPAMIL SR 180 MG (CALAN SR) TAB PO SCH (20:42)
[2021-05-27] MEDS: ATORVASTATIN 10 MG TABLET PO SCH (20:43)
[2021-05-27] MEDS: FAMOTIDINE 20 MG (PEPCID) TABLET PO SCH (20:43)
[2021-05-28] MEDS: RT-ALBUTEROL HFA 8.5 GM INHALER IH SCH ×3 (01:48→16:31)
[2021-05-28 05:25] LABS: PHOSPHORUS 2.7 MG/DL (2.3-4.7)
[2021-05-28 05:27] LABS: MAGNESIUM 1.9 MG/DL (1.6-2.4)
[2021-05-28] MEDS ORDERED: KCL 20 MEQ TAB (K-DUR) PO SCH (06:00)
[2021-05-28] MEDS ORDERED: MAGNESIUM 1 GM/100 ML IVPB 100 ML IV SCH (06:00)
[2021-05-28] MEDS ORDERED: POTASSIUM CL 10MEQ/50ML IVPB 50 ML IV SCH (06:00)
[2021-05-28] MEDS: inSUlin ASPART (NovoLOG) 1 UNIT/0.01 ML (CHARGE PER UNIT) SC SCH ×3 (06:29→16:31)
[2021-05-28] MEDS ORDERED: APIXABAN 5 MG (ELIQUIS) TABLET PO SCH (09:00)
[2021-05-28] MEDS: FAMOTIDINE 20 MG (PEPCID) TABLET PO SCH (09:12)
[2021-05-28] MEDS: LOSARTAN 50 MG (COZAAR) TAB PO SCH (09:16)
[2021-05-28] MEDS: GLIMEPIRIDE 1 MG (AMARYL) TAB PO SCH (09:17)
[2021-05-28] MEDS ORDERED: APIX5TAB PO (11:34)
[2021-05-28] MEDS ORDERED: PHENYLEPHRINE 0.25% NASAL SPR (NEO-SYNEPHRINE) 15 ML NS PRN (13:00)
[2021-05-28 18:51] VITALS: BP 148/87
[2021-06-02] MEDS ORDERED: APIXABAN 5 MG (ELIQUIS) TABLET PO SCH (09:00)
== END 2021-05-28 18:56 | disposition home or self-care (01) | DRG 177 ==
LOC: EDUNIT# 07:50 → ER FS 07:59 → ICU 12:47 → CSD 05-27 18:31 → 4TH 05-28 10:35
PROVIDERS: ADMIT Family Medicine; ATTEND Family Medicine
DX: U07.1 COVID-19 (principal); J12.82 Pneumonia due to coronavirus disease 2019; I26.02 Saddle embolus of pulmonary artery with acute cor pulmonale; J96.01 Acute respiratory failure with hypoxia; Z68.41 Body mass index [BMI] 40.0-44.9, adult; E66.9 Obesity, unspecified; I10 Essential (primary) hypertension; E11.65 Type 2 diabetes mellitus with hyperglycemia; Z79.84 Long term (current) use of oral hypoglycemic drugs; K21.9 Gastro-esophageal reflux disease without esophagitis; Z88.2 Allergy status to sulfonamides
CPT/HCPCS: 36415; 71045; 71275; 80048; 80053; 81000; 82947; 83605; 83735; 83880; 84100; 85007; 85025; 85027; 85379; 85610; 85730; 86141; 87040; 87081; 87088; 87636; 93306; 93970; 94640; 94761

== ENCOUNTER → 2021-06-12 | Outpatient (CLI) | payer BC ==
[~2021-06-12] MED LIST changes: +APIX5TAB PO; +ATOR10TA66 PO; +GLIM1TAB4 PO; +TELM1TAB35 PO; +Tumeric
== END ==
LOC: FS 15:36
PROVIDERS: ATTEND Family Medicine
DX: N39.0 Urinary tract infection, site not specified (principal)
CPT/HCPCS: 87077; 87088

== ENCOUNTER → 2021-07-13 | Outpatient (CLI) | payer BC | LOC: LABNPT 15:23 | PROVIDERS: ATTEND Family Medicine | DX: N39.0 Urinary tract infection, site not specified (principal) | CPT/HCPCS: 87077; 87088; 87186 ==

== ENCOUNTER → 2021-08-14 | Outpatient (CLI) | payer BC | LOC: LAB FS 14:33 | PROVIDERS: ATTEND Family Medicine | DX: R30.9 Painful micturition, unspecified (principal) | CPT/HCPCS: 87077; 87088 ==